=== PATIENT | female | born 1950 | race Caucasian/White ===

== ENCOUNTER → 2016-11-17 | Outpatient (CLI) | payer MEDICARE, BC ==
[~2016-11-17] MED LIST: ACET500T67 PO; ALBU17AE4 IH; AMLO5TAB66 PO; ASPI-558 PO; ATEN25TA PO; BUDE8.6S4 NS; CALC-586 PO; CIPR-280 PO; CRAN500C2 PO; DABI150C PO; FEXO-11 PO; FLEC100T21 PO; LEVO50TA69 PO; MULT-934 PO; OMEP40CA52 PO; POTA10CA32 PO; PRAV40TA46 PO; PYRI200T PO; SUCR1TAB29 PO; [UNRECOGNIZED DRUG - CODE] PO
--- NOTE | 2016-11-17 15:37 | DI ---
Indication: ITS.REASON: M25.531 Pain in right wrist; M25.521 Pain in right elbow PROCEDURE: ELBOW RIGHT 3 VIEW: Encounter: Initial Comparison: None Findings: There is no acute fracture, dislocation or malalignment identified. Impression: No acute osseous abnormality. .
--- NOTE | 2016-11-17 15:39 | DI ---
Indication: ITS.REASON: M25.531 Pain in right wrist; M25.521 Pain in right elbow PROCEDURE: WRIST RIGHT 3-4 VIEWS: Encounter: Initial Comparison: None Findings: There is no acute fracture, dislocation or malalignment identified. Advanced degenerative change in the first carpometacarpal joint. Impression: No acute osseous abnormality. .
== END ==
LOC: IMA 14:29
PROVIDERS: ATTEND Internal Medicine
DX: M25.531 Pain in right wrist (principal); M25.521 Pain in right elbow; Z91.81 History of falling

== ENCOUNTER → 2016-11-21 | Outpatient (CLI) | payer MEDICARE, BC | LOC: WC.BC 10:24 | DX: Z12.31 Encounter for screening mammogram for malignant neoplasm of breast (principal) | CPT/HCPCS: 77063; G0202 ==